=== PATIENT | female | born 1965 | race Hispanic/Latino ===

== ENCOUNTER 2022-06-26 09:20 | Emergency (ER) | payer BC, OTHER ==
[~2022-06-26] VITALS: Ht 154.9 cm; Wt 65.8 kg
[2022-06-26] MEDS ORDERED: IBUPROFEN200 MG PO (09:41)
[2022-06-26] MEDS ORDERED: ACETAMINOPHEN500 MG PO (09:41)
[2022-06-26] MEDS ORDERED: CLONIDINE HCL 0.1 MG TAB PO ONE (09:45)
[2022-06-26 10:02] VITALS: BP 191/96
== END 2022-06-26 10:03 | disposition home or self-care (01) ==
LOC: FSED 09:36
DX: S43.491A Other sprain of right shoulder joint, initial encounter (principal); S73.191A Other sprain of right hip, initial encounter; W18.39XA Other fall on same level, initial encounter; Y92.89 Other specified places as the place of occurrence of the external cause; I10 Essential (primary) hypertension; E11.9 Type 2 diabetes mellitus without complications
CPT/HCPCS: 99283